=== PATIENT | female | born 1980 | race Caucasian/White ===

== ENCOUNTER 2016-05-25 17:54 | Emergency (ER) | payer OTHER ==
[2016-05-25] MEDS ORDERED: SODIUM CHLORIDE 0.9% 1,000 ML IV ONE (19:53)
[2016-05-25] MEDS ORDERED: KETOROLAC 30 MG/ML 1 ML VIAL IVP STA (19:53)
[2016-05-25] MEDS ORDERED: METOCLOPRAMIDE 5 MG/ML 2 ML VIAL IVP STA (19:53)
[2016-05-25] MEDS ORDERED: diphenhydrAMINE 50 MG/ML 1 ML VIAL IVP STA (19:53)
--- NOTE | 2016-05-25 19:56 | ED ---
Headache HPI - General Chief Complaint: Headache Stated Complaint: migraine, low blood pressure, nausea Time Seen by Provider: 05/25/16 19:41 Source: RN notes reviewed Mode of arrival: wheelchair Limitations: no limitations - History of Present Illness Initial Comments: Patient is a 35-year-old female presents to the emergency room for evaluation of migraine headache. Patient states she's had a history of migraine headache in the past. Patient states today she woke up again having a slight headache. Patient states that her friend was cooking food and worsened her headache. Patient states now having 10 out of 10 constant headache in her frontal area. Patient denies changes in vision. Patient does admit to photophobia and phonophobia. Patient denies ringing in the ears or ear pain. Patient denies neck pain. Patient denies fevers or chills. Patient states the headache is causing her to be very nauseated. Patient states she vomited once. Patient denies abdominal pain. Patient denies chest pain or shortness of breath. Patient does state she has a history of low blood pressure which also is another cause of her migraines. Patient states she took ibuprofen and a Zofran at home with no relief of symptoms. - Related Data Home Medications Medication Instructions Recorded Confirmed Albuterol Inhaler [Ventolin 1 - 2 puff INHALATION RT-Q4H PRN 05/25/16 05/25/16 Inhaler] Flunisolide [Aerospan] 1 puff INHALATION RT-DAILY 05/25/16 05/25/16 Ibuprofen [Motrin] 600 mg PO Q8HR PRN 05/25/16 05/25/16 Ondansetron [Zofran] 4 mg PO Q6H PRN 05/25/16 05/25/16 Previous Rx's Medication Instructions Recorded Ondansetron Odt [Zofran Odt] 4 mg PO Q8HR PRN #12 tab 05/25/16 Allergies Allergy/AdvReac Type Severity Reaction Status Date / Time morphine Allergy Unknown Verified 05/25/16 18:05 Review of Systems ROS Statement: Those systems with pertinent positive or pertinent negative responses have been documented in the HPI. ROS Other: All systems not noted in ROS Statement are negative. Past Medical History Past Medical History: No Reported History Additional Past Medical History / Comment(s): migraines History of Any Multi-Drug Resistant Organisms: None Reported Past Surgical History: Hernia Repair, Tubal Ligation Additional Past Surgical History / Comment(s): nerve graft Past Psychological History: No Psychological Hx Reported Smoking Status: Current every day smoker Past Alcohol Use History: Occasional Past Drug Use History: None Reported General Exam - General Exam Comments Initial Comments: Laying in exam room, no acute distress. Limitations: no limitations General appearance: alert, in no apparent distress Head exam: Present: atraumatic, normocephalic, normal inspection Eye exam: Present: normal appearance, PERRL, EOMI Pupils: Present: normal accommodation ENT exam: Present: normal exam Neck exam: Present: normal inspection Respiratory exam: Present: normal lung sounds bilaterally. Absent: respiratory distress Cardiovascular Exam: Present: normal rhythm, tachycardia, normal heart sounds Extremities exam: Present: normal inspection, normal capillary refill Back exam: Present: normal inspection Neurological exam: Present: alert, oriented X3, CN II-XII intact, normal gait Expanded Speech: Present: fluid speech Cranial nerves: EOM's Intact: Normal Sensory exam: Upper Extremity Light Touch: Normal, Lower Extremity Light Touch: Normal Motor strength exam: RUE: 5, LUE: 5, RLE: 5, LLE: 5 Eye Response: (4) open spontaneously Motor Response: (6) obeys commands Verbal Response: (5) oriented Psychiatric exam: Present: normal affect, normal mood Skin exam: Present: warm, dry, intact, normal color. Absent: rash Course Vital Signs 05/25/16 05/25/16 18:03 21:47 Temperature 99.3 F 97 F L Pulse Rate 118 H 74 Respiratory 18 16 Rate Blood Pressure 103/66 120/70 O2 Sat by Pulse 97 98 Oximetry Medical Decision Making - Medical Decision Making Patient is a 35-year-old female presents emergency room for evaluation of migraine headache. Patient states she is feeling better after medications given. Patient to follow-up with her primary care provider. Patient states she is also discussed with her. Return parameters discussed. Case discussed with Dr. Fernandez. - Lab Data Result diagrams: 05/25/16 20:16 05/25/16 20:16 Lab Results 05/25/16 05/25/16 05/25/16 Range/Units 20:16 20:16 20:16 WBC 10.2 (3.8-10.6) k/uL RBC 5.06 (3.80-5.40) m/uL Hgb 15.7 (11.4-16.0) gm/dL Hct 46.5 H (34.0-46.0) % MCV 91.9 (80.0-100.0) fL MCH 31.0 (25.0-35.0) pg MCHC 33.8 (31.0-37.0) g/dL RDW 12.5 (11.5-15.5) % Plt Count 338 (150-450) k/uL Neutrophils % 89 % Lymphocytes % 3 % Monocytes % 4 % Eosinophils % 3 % Basophils % 0 % Neutrophils # 9.1 H (1.3-7.7) k/uL Lymphocytes # 0.3 L (1.0-4.8) k/uL Monocytes # 0.4 (0-1.0) k/uL Eosinophils # 0.3 (0-0.7) k/uL Basophils # 0.0 (0-0.2) k/uL Sodium (137-145) mmol/L Potassium (3.5-5.1) mmol/L Chloride (98-107) mmol/L Carbon Dioxide (22-30) mmol/L Anion Gap mmol/L BUN (7-17) mg/dL Creatinine (0.52-1.04) mg/dL Est GFR (MDRD) Af Amer (>60 ml/min/1.73 sqM) Est GFR (MDRD) Non-Af (>60 ml/min/1.73 sqM) Glucose (74-99) mg/dL Calcium (8.4-10.2) mg/dL Total Bilirubin (0.2-1.3) mg/dL AST (14-36) U/L ALT (9-52) U/L Alkaline Phosphatase (38-126) U/L Total Protein (6.3-8.2) g/dL Albumin (3.5-5.0) g/dL Urine Color Light Yellow Urine Appearance Clear (Clear) Urine pH 6.5 (5.0-8.0) Ur Specific [place] 1.012 (1.001-1.035) Urine Protein Negative (Negative) Urine Glucose (UA) Negative (Negative) Urine Ketones Negative (Negative) Urine Blood Negative (Negative) Urine Nitrate Negative (Negative) Urine Bilirubin Negative (Negative) Urine Urobilinogen <2.0 (<2.0) mg/dL Ur Leukocyte Esterase Negative (Negative) Urine HCG, Qual Not Detected (Not Detectd) 05/25/16 Range/Units 20:16 WBC (3.8-10.6) k/uL RBC (3.80-5.40) m/uL Hgb (11.4-16.0) gm/dL Hct (34.0-46.0) % MCV (80.0-100.0) fL MCH (25.0-35.0) pg MCHC (31.0-37.0) g/dL RDW (11.5-15.5) % Plt Count (150-450) k/uL Neutrophils % % Lymphocytes % % Monocytes % % Eosinophils % % Basophils % % Neutrophils # (1.3-7.7) k/uL Lymphocytes # (1.0-4.8) k/uL Monocytes # (0-1.0) k/uL Eosinophils # (0-0.7) k/uL Basophils # (0-0.2) k/uL Sodium 140 (137-145) mmol/L Potassium 4.2 (3.5-5.1) mmol/L Chloride 102 (98-107) mmol/L Carbon Dioxide 26 (22-30) mmol/L Anion Gap 12 mmol/L BUN 14 (7-17) mg/dL Creatinine 0.60 (0.52-1.04) mg/dL Est GFR (MDRD) Af Amer >60 (>60 ml/min/1.73 sqM) Est GFR (MDRD) Non-Af >60 (>60 ml/min/1.73 sqM) Glucose 102 H (74-99) mg/dL Calcium 9.1 (8.4-10.2) mg/dL Total Bilirubin 0.6 (0.2-1.3) mg/dL AST 19 (14-36) U/L ALT 23 (9-52) U/L Alkaline Phosphatase 103 (38-126) U/L Total Protein 7.4 (6.3-8.2) g/dL Albumin 4.3 (3.5-5.0) g/dL Urine Color Urine Appearance (Clear) Urine pH (5.0-8.0) Ur Specific [place] (1.001-1.035) Urine Protein (Negative) Urine Glucose (UA) (Negative) Urine Ketones (Negative) Urine Blood (Negative) Urine Nitrate (Negative) Urine Bilirubin (Negative) Urine Urobilinogen (<2.0) mg/dL Ur Leukocyte Esterase (Negative) Urine HCG, Qual (Not Detectd) Disposition Clinical Impression: Headache Disposition: HOME SELF-CARE Condition: Good Instructions: Acute Headache (ED) Additional Instructions: Tylenol or Motrin As Needed for Headache. Take Zofran As Needed for Nausea. Drink Plenty of Water. Please Follow-Up with Primary Care Provider in 24-48 Hours for Reevaluation. If any new symptom arises, symptoms worsen or fever develops, return to ER as soon as possible. Prescriptions: Ondansetron Odt [Zofran Odt] 4 mg PO Q8HR PRN #12 tab PRN Reason: Nausea Referrals: Marie Newell MD [Primary Care Provider] - 1-2 days Time of Disposition: 21:37
[2016-05-25 20:24] LABS: Basophils % (A) 0 %; CH 31.3; CHCM 34.1; Eosinophils # (A) 0.3 k/uL (0-0.7); Eosinophils % (A) 3 %; HCT 46.5 % (34.0-46.0); HDW 2.34; HGB 15.7 gm/dL (11.4-16.0); Luc # (Auto) 0.06; Luc % (Auto) 1; Lymphocytes # (A) 0.3 k/uL (1.0-4.8); Lymphocytes % (A) 3 %; MCHC 33.8 g/dL (31.0-37.0); MCV 91.9 fL (80.0-100.0); Mean Platelet Volume 6.7; Monocytes # (A) 0.4 k/uL (0-1.0); Monocytes % (A) 4 %; Neutrophils # (A) 9.1 k/uL (1.3-7.7); Neutrophils % (A) 89 %; RBC 5.06 m/uL (3.80-5.40); RDW 12.5 % (11.5-15.5); WBC 10.2 k/uL (3.8-10.6); WBC (Perox) 10.31
[2016-05-25 20:36] LABS: ALT 23 U/L (9-52); AST 19 U/L (14-36); Alkaline Phosphatase 103 U/L (38-126); Anion Gap 12 mmol/L; Blood Urea Nitrogen 14 mg/dL (7-17); Calcium 9.1 mg/dL (8.4-10.2); Carbon Dioxide 26 mmol/L (22-30); Chloride 102 mmol/L (98-107); Glucose 102 mg/dL (74-99); Non-African American GFR(MDRD) >60 (>60 ml/min/1.73 sqM); Potassium 4.2 mmol/L (3.5-5.1); Sodium 140 mmol/L (137-145); Total Bilirubin 0.6 mg/dL (0.2-1.3); Total Protein 7.4 g/dL (6.3-8.2)
[2016-05-25 20:42] LABS: Appearance,Urine Clear (Clear); Bilirubin,Urine Negative (Negative); Glucose,Urine (UA) Negative (Negative); Ketones,Urine Negative (Negative); Leukocyte Esterase,Urine Negative (Negative); Nitrite,Urine Negative (Negative); PH, Urine 6.5 (5.0-8.0); Protein,Urine Negative (Negative); Specific Gravity,Urine 1.012 (1.001-1.035); UA Billing (MACRO vs. MICRO) CHEM; Urobilinogen,Urine <2.0 mg/dL (<2.0)
[2016-05-25 21:48] VITALS: BP 120/70; PULSE 74; RESP 16; TEMP 97
== END 2016-05-25 21:47 | disposition home or self-care (01) ==
LOC: EC 17:54
DX: R51 Headache (principal); Z79.51 Long term (current) use of inhaled steroids; Z88.5 Allergy status to narcotic agent; F17.200 Nicotine dependence, unspecified, uncomplicated
CPT/HCPCS: 96374; 96375; 96361; 99284; 36415; 80053; 85025; 81003; 81025; J1200; J2765; J1885

== ENCOUNTER 2017-03-13 07:39 | Emergency (ER) | payer OTHER ==
[2017-03-13 07:42] VITALS: BP 133/81; PULSE 90; RESP 20; TEMP 97.5
[2017-03-13] MEDS ORDERED: LORazepam 1 MG TAB PO STA (08:14)
--- NOTE | 2017-03-13 08:55 | ED ---
SOB HPI - General Chief Complaint: Shortness of Breath Stated Complaint: SOB,anxiety Time Seen by Provider: 03/13/17 08:10 Source: patient, RN notes reviewed Mode of arrival: ambulatory Limitations: no limitations - History of Present Illness Initial Comments: 36-year-old female presents emergency Department chief complaint intermittent shortness of breath, anxiety. Patient states that she he's having waves of anxiety where she gets tingling in her lips and her fingers well states that she is short of breath at that time. Patient's that she had an upper respiratory infection proximal to 2 weeks ago. She had a box one week ago. Patient states she sober [place]. Patient denies any recent calf pain, history DVT, history of traveling. Patient denies any current chest pain states most symptoms are resolved. Denies any prior cardiac history. Denies headache, dizziness, focal weakness. - Related Data Home Medications Medication Instructions Recorded Confirmed Albuterol Inhaler [Ventolin 1 - 2 puff INHALATION RT-Q4H PRN 05/25/16 05/25/16 Inhaler] Flunisolide [Aerospan] 1 puff INHALATION RT-DAILY 05/25/16 05/25/16 Ibuprofen [Motrin] 600 mg PO Q8HR PRN 05/25/16 05/25/16 Ondansetron [Zofran] 4 mg PO Q6H PRN 05/25/16 05/25/16 Previous Rx's Medication Instructions Recorded Ondansetron Odt [Zofran Odt] 4 mg PO Q8HR PRN #12 tab 05/25/16 LORazepam [Ativan] 0.5 mg PO BID PRN #10 tab 03/13/17 Allergies Allergy/AdvReac Type Severity Reaction Status Date / Time morphine Allergy Unknown Verified 03/13/17 07:42 Review of Systems ROS Statement: Those systems with pertinent positive or pertinent negative responses have been documented in the HPI. ROS Other: All systems not noted in ROS Statement are negative. Past Medical History Past Medical History: No Reported History Additional Past Medical History / Comment(s): migraines History of Any Multi-Drug Resistant Organisms: None Reported Past Surgical History: Hernia Repair, Tubal Ligation Additional Past Surgical History / Comment(s): nerve graft Past Psychological History: Anxiety Smoking Status: Current every day smoker Past Alcohol Use History: Occasional Past Drug Use History: None Reported General Exam Limitations: no limitations General appearance: alert, in no apparent distress Head exam: Present: atraumatic, normocephalic, normal inspection Eye exam: Present: normal appearance, PERRL, EOMI. Absent: scleral icterus, conjunctival injection, periorbital swelling ENT exam: Present: normal exam, normal oropharynx, mucous membranes moist, TM's normal bilaterally, normal external ear exam Neck exam: Present: normal inspection, full ROM. Absent: tenderness, meningismus, lymphadenopathy Respiratory exam: Present: normal lung sounds bilaterally. Absent: respiratory distress, wheezes, rales, rhonchi, stridor Cardiovascular Exam: Present: regular rate, normal rhythm, normal heart sounds. Absent: systolic murmur, diastolic murmur, rubs, gallop, clicks GI/Abdominal exam: Present: soft, normal bowel sounds. Absent: distended, tenderness, guarding, rebound, rigid Extremities exam: Present: normal inspection, full ROM, normal capillary refill. Absent: tenderness, pedal edema, joint swelling, calf tenderness Neurological exam: Present: alert, oriented X3, CN II-XII intact Psychiatric exam: Present: normal affect, normal mood Skin exam: Present: warm, dry, intact, normal color. Absent: rash Course Vital Signs 03/13/17 07:41 Temperature 97.5 F L Pulse Rate 90 Respiratory 20 Rate Blood Pressure 133/81 O2 Sat by Pulse 100 Oximetry Medical Decision Making - Medical Decision Making 36-year-old female presented for intermittent shortness breath numbness and tingling and feeling anxious. Patient's symptoms are mostly related to anxiety at this time. Patient's EKG and chest x-ray unremarkable patient's exam is unremarkable vitals are stable. Patient be discharged with Ativan return parameters were discussed. 03/13/17 08:57 EKG performed at 8:25 normal sinus rhythm with rate of 73 NC 146 QRS 80 QT/QTC 404/445 - Radiology Data Radiology results: report reviewed, image reviewed Chest x-ray shows no acute abnormality Disposition Clinical Impression: Anxiety Disposition: HOME SELF-CARE Condition: Stable Instructions: Anxiety (ED) Additional Instructions: Please return to the Emergency Department if symptoms worsen or any other concerns. Prescriptions: LORazepam [Ativan] 0.5 mg PO BID PRN #10 tab PRN Reason: Anxiety Referrals: Marie Newell MD [Primary Care Provider] - 1-2 days Time of Disposition: 09:01
--- NOTE | 2017-03-13 08:55 | XR ---
EXAMINATION TYPE: XR chest 2V DATE OF EXAM: 03/13/2017 HISTORY: Cough/pain. REFERENCE: Previous study dated 03/12/1715. FINDINGS: The lungs are clear. Pleural space are clear. The heart is not enlarged. IMPRESSION: NO ACUTE INTRATHORACIC ABNORMALITY.
== END 2017-03-13 09:15 | disposition home or self-care (01) ==
LOC: EC 07:39
DX: F41.9 Anxiety disorder, unspecified (principal); R06.02 Shortness of breath; R20.2 Paresthesia of skin; F17.200 Nicotine dependence, unspecified, uncomplicated; Z79.899 Other long term (current) drug therapy; Z88.5 Allergy status to narcotic agent
CPT/HCPCS: 71020; 93005; 99285

== ENCOUNTER 2017-04-02 17:24 | Emergency (ER) | payer OTHER ==
[2017-04-02 17:34] VITALS: BP 133/76; PULSE 90; RESP 18; TEMP 98
[2017-04-02] MEDS ORDERED: HYDROcodone/APAP 5-325MG 1 EACH TAB PO STA (17:37)
--- NOTE | 2017-04-02 17:44 | ED ---
Upper Extremity HPI - General Chief Complaint: Extremity Injury, Upper Stated Complaint: left elbow injury Time Seen by Provider: 04/02/17 17:32 Source: patient Mode of arrival: ambulatory Limitations: no limitations - History of Present Illness Initial Comments: 36-year-old female patient presents to the emergency department today with complaints of left elbow and left shoulder pain after experiencing a fall today. Patient states around 4 PM she was getting out of her van, when she stepped down the ground was slippery, she fell down and landed on her left arm. Patient states that she has had significant pain to the shoulder and elbow since. Patient states that she is unable to move the arm without significant pain. She states she is having minor tingling in her left hand. She denies any difficulty with range of motion to the wrist. She denies hitting her head or losing consciousness during the fall. She denies any other injuries. Patient denies any headache, neck pain, back pain, chest pain, shortness of breath, dizziness, weakness, abdominal pain, nausea, vomiting, or difficulties with bowel movements or urination. - Related Data Home Medications Medication Instructions Recorded Confirmed Albuterol Inhaler [Ventolin 1 - 2 puff INHALATION RT-Q4H PRN 05/25/16 05/25/16 Inhaler] Flunisolide [Aerospan] 1 puff INHALATION RT-DAILY 05/25/16 05/25/16 Ibuprofen [Motrin] 600 mg PO Q8HR PRN 05/25/16 05/25/16 Ondansetron [Zofran] 4 mg PO Q6H PRN 05/25/16 05/25/16 Previous Rx's Medication Instructions Recorded Ondansetron Odt [Zofran Odt] 4 mg PO Q8HR PRN #12 tab 05/25/16 LORazepam [Ativan] 0.5 mg PO BID PRN #10 tab 03/13/17 Ibuprofen [Motrin] 600 mg PO Q8HR PRN #30 tab 04/02/17 Allergies Allergy/AdvReac Type Severity Reaction Status Date / Time morphine Allergy Unknown Verified 04/02/17 17:31 Review of Systems ROS Statement: Those systems with pertinent positive or pertinent negative responses have been documented in the HPI. ROS Other: All systems not noted in ROS Statement are negative. Past Medical History Past Medical History: No Reported History Additional Past Medical History / Comment(s): migraines History of Any Multi-Drug Resistant Organisms: None Reported Past Surgical History: Hernia Repair, Tubal Ligation, Uterine Ablation Additional Past Surgical History / Comment(s): nerve graft, D&C Past Psychological History: Anxiety Smoking Status: Current some day smoker Past Alcohol Use History: Occasional Past Drug Use History: None Reported General Exam Limitations: no limitations General appearance: alert, in no apparent distress, other (This is a well- developed well-nourished female patient in no acute distress. Vital signs upon presentation her temperature 98.0F, pulse 90, respirations 18, blood pressure 133/76, pulse ox 98% on room air.) Head exam: Present: atraumatic, normocephalic, normal inspection Eye exam: Present: normal appearance, PERRL, EOMI. Absent: scleral icterus, conjunctival injection, periorbital swelling ENT exam: Present: normal exam, normal oropharynx, mucous membranes moist Neck exam: Present: normal inspection, full ROM, other (Nontender, no step-off, no deformity to firm midline palpation of the posterior cervical spine. Full range of motion without pain or limitation.). Absent: tenderness, meningismus, lymphadenopathy Respiratory exam: Present: normal lung sounds bilaterally. Absent: respiratory distress, wheezes, rales, rhonchi, stridor Cardiovascular Exam: Present: regular rate, normal rhythm, normal heart sounds. Absent: systolic murmur, diastolic murmur, rubs, gallop, clicks Extremities exam: Present: tenderness (Tenderness over the medial and lateral epicondyles as well as the olecranon process. Tenderness over the AC joint and shoulder. ), normal capillary refill, other (No evidence of swelling to the left shoulder or elbow. Skin to the left arm is pink, warm, and dry. Cap refill is less than 3 seconds. Strength to the right hand is 5/5.). Absent: full ROM (Patient unwilling to move the left elbow or shoulder due to increased pain with movement), pedal edema, joint swelling, calf tenderness Back exam: Present: normal inspection, other (Nontender, no step-off, no deformity to firm midline palpation of the thoracic and lumbar vertebrae. Full range of motion without pain or limitation.). Absent: tenderness, vertebral tenderness Neurological exam: Present: alert, oriented X3, CN II-XII intact Psychiatric exam: Present: normal affect, normal mood Skin exam: Present: warm, dry, intact, normal color. Absent: rash Course Vital Signs 04/02/17 17:31 Temperature 98.0 F Pulse Rate 90 Respiratory 18 Rate Blood Pressure 133/76 O2 Sat by Pulse 98 Oximetry Medical Decision Making - Medical Decision Making 36-year-old female patient presented for evaluation of left elbow and shoulder pain after experiencing a fall today. Physical examination was unremarkable however patient did have some bony tenderness around the elbow and shoulder joint. X-rays were negative for any acute fracture or dislocation. Reevaluation of the arm shows good neurovascular status with strong pulses. Patient is able to perform range of motion over states it is painful. She will be discharged home with a prescription for ibuprofen for pain control as well as instructions to apply ice to the arm 4 times daily. She is instructed to follow-up with her primary care physician for recheck in 1-2 days. She is also instructed to have repeat x-rays performed of her symptoms persisted and 7-10 days. She is instructed to return here immediately for any new, worsening, or concerning symptoms. She verbalizes understanding and agrees with this plan. - Radiology Data Radiology results: report reviewed, image reviewed 3 views of the left shoulder show no fracture nor dislocation. Joint spaces are normal. There are no pathologic calcifications. Impression by Dr. Ramires shows negative left shoulder exam. 3 views of the left elbow show no fracture nor dislocation. Elbow joint spaces appear normal. Impression by Dr. Ramires shows negative left elbow exam. Disposition Clinical Impression: Injury of left shoulder, Injury of left elbow Disposition: HOME SELF-CARE Condition: Good Instructions: Contusion in Adults (ED) Additional Instructions: Apply ice to the painful areas 20 minutes at a time at least 4 times daily. Have repeat x-rays performed in 7-10 days if pain symptoms persist. Follow-up with your primary care physician for recheck in 1-2 days. Return here immediately for any new, worsening, or concerning symptoms. Prescriptions: Ibuprofen [Motrin] 600 mg PO Q8HR PRN #30 tab PRN Reason: Pain Referrals: Marie Newell MD [Primary Care Provider] - 1-2 days Time of Disposition: 18:25
--- NOTE | 2017-04-02 18:05 | XR ---
EXAMINATION TYPE: XR shoulder complete LT DATE OF EXAM: 04/02/2017 COMPARISON: NONE HISTORY: Pain TECHNIQUE: 3 views FINDINGS: I see no fracture nor dislocation. Joint spaces are normal. There are no pathologic calcifi cations. IMPRESSION: Negative left shoulder exam
--- NOTE | 2017-04-02 18:11 | XR ---
EXAMINATION TYPE: XR elbow complete LT DATE OF EXAM: 04/02/2017 COMPARISON: NONE HISTORY: Pain TECHNIQUE: 3 views FINDINGS: I see no fracture nor dislocation. Elbow joint spaces are normal. IMPRESSION: Negative left elbow exam
== END 2017-04-02 18:31 | disposition home or self-care (01) ==
LOC: EC 17:24
DX: S59.902A Unspecified injury of left elbow, initial encounter (principal); S49.92XA Unspecified injury of left shoulder and upper arm, initial encounter; F17.200 Nicotine dependence, unspecified, uncomplicated; Z88.5 Allergy status to narcotic agent; Z79.51 Long term (current) use of inhaled steroids; W01.0XXA Fall on same level from slipping, tripping and stumbling without subsequent striking against object, initial encounter
CPT/HCPCS: 99283

== ENCOUNTER 2018-11-25 07:53 | Emergency (ER) | payer OTHER ==
[2018-11-25 08:04] VITALS: BP 125/85; PULSE 100; RESP 18; TEMP 98.5
[2018-11-25] MEDS ORDERED: ONDANSETRON 4 MG/2 ML VIAL IM STA (08:11)
--- NOTE | 2018-11-25 08:15 | ED ---
Recheck HPI - General Chief Complaint: Recheck/Abnormal Lab/Rx Stated Complaint: sun poisoning Time Seen by Provider: 11/25/18 08:08 Source: patient, RN notes reviewed Mode of arrival: ambulatory Limitations: no limitations - History of Present Illness Initial Comments: This a 38-year-old female presents emergency Department with chief complaint sun poisoning. Patient states that she was out on the boat yesterday states that she got sunburn. Patient states that she has trouble with some skin because she breaks out from it. Patient states that she has sunburn on her back, chest abdomen and upper legs. Patient states she woke up feeling nauseated she did vomit once. Patient denies any known fever states that she has chills. She has not use any topical lotions no Tylenol Motrin taken. - Related Data Home Medications Medication Instructions Recorded Confirmed Albuterol Inhaler [Ventolin 1 - 2 puff INHALATION RT-Q4H PRN 05/25/16 05/25/16 Inhaler] Flunisolide [Aerospan] 1 puff INHALATION RT-DAILY 05/25/16 05/25/16 Ibuprofen [Motrin] 600 mg PO Q8HR PRN 05/25/16 05/25/16 Ondansetron [Zofran] 4 mg PO Q6H PRN 05/25/16 05/25/16 Previous Rx's Medication Instructions Recorded Ondansetron Odt [Zofran Odt] 4 mg PO Q8HR PRN #12 tab 05/25/16 LORazepam [Ativan] 0.5 mg PO BID PRN #10 tab 03/13/17 Ibuprofen [Motrin] 600 mg PO Q8HR PRN #30 tab 04/02/17 Ondansetron Odt [Zofran Odt] 4 mg PO Q8HR PRN #14 tab 11/25/18 Allergies Allergy/AdvReac Type Severity Reaction Status Date / Time morphine Allergy Unknown Verified 11/25/18 08:04 Review of Systems ROS Statement: Those systems with pertinent positive or pertinent negative responses have been documented in the HPI. ROS Other: All systems not noted in ROS Statement are negative. Past Medical History Past Medical History: Asthma Additional Past Medical History / Comment(s): migraines History of Any Multi-Drug Resistant Organisms: None Reported Past Surgical History: Hernia Repair, Tubal Ligation, Uterine Ablation Additional Past Surgical History / Comment(s): nerve graft, D&C Past Psychological History: Anxiety Smoking Status: Current every day smoker Past Alcohol Use History: Occasional Past Drug Use History: None Reported General Exam Limitations: no limitations General appearance: alert, in no apparent distress Head exam: Present: atraumatic, normocephalic, normal inspection Eye exam: Present: normal appearance, PERRL, EOMI. Absent: scleral icterus, conjunctival injection, periorbital swelling ENT exam: Present: normal exam, normal oropharynx, mucous membranes moist Neck exam: Present: normal inspection, full ROM. Absent: tenderness, meningismus, lymphadenopathy Respiratory exam: Present: normal lung sounds bilaterally. Absent: respiratory distress, wheezes, rales, rhonchi, stridor Cardiovascular Exam: Present: regular rate, normal rhythm, normal heart sounds. Absent: systolic murmur, diastolic murmur, rubs, gallop, clicks GI/Abdominal exam: Present: soft, normal bowel sounds. Absent: distended, tenderness, guarding, rebound, rigid Neurological exam: Present: alert, oriented X3, CN II-XII intact Skin exam: Present: warm, dry, intact, normal color, other (Sunburn first-degree noted on chest abdomen back and upper legs). Absent: rash Course Vital Signs 11/25/18 08:02 Temperature 98.5 F Pulse Rate 100 Respiratory 18 Rate Blood Pressure 125/85 O2 Sat by Pulse 99 Oximetry Medical Decision Making - Medical Decision Making 38-year-old female presented for sunburn, concern for sun poisoning. Explained that these are symptoms from a severe burn. Patient we given Zofran, advised take anti-inflammatories, gentle hydration and apply lotion. Patient agrees this plan. Disposition Clinical Impression: Burn from the sun, Nausea Disposition: HOME SELF-CARE Condition: Stable Instructions (If sedation given, give patient instructions): Sunburn (ED) Additional Instructions: Please return to the Emergency Department if symptoms worsen or any other concerns. Prescriptions: Ondansetron Odt [Zofran Odt] 4 mg PO Q8HR PRN #14 tab PRN Reason: Nausea Is patient prescribed a controlled substance at d/c from ED?: No Referrals: Marie Newell MD [Primary Care Provider] - 1-2 days Time of Disposition: 08:15
== END 2018-11-25 08:38 | disposition home or self-care (01) ==
LOC: EC 07:53
DX: L55.0 Sunburn of first degree (principal); R11.2 Nausea with vomiting, unspecified; J45.909 Unspecified asthma, uncomplicated; F17.200 Nicotine dependence, unspecified, uncomplicated; Z79.899 Other long term (current) drug therapy; Z88.5 Allergy status to narcotic agent
CPT/HCPCS: 99282; 96372; J2405